=== PATIENT | female | born 2000 | race Caucasian/White ===

== ENCOUNTER → 2024-10-31 10:45 | Outpatient (REF) | payer OTHER, SELFPAY | LOC: HWRAD 10:45 | PROVIDERS: ATTENDING PHYSICIAN Orthopaedic Surgery Hand Surgery | DX: S62.025K Nondisplaced fracture of middle third of navicular [scaphoid] bone of left wrist, subsequent encounter for fracture with nonunion (principal) | CPT/HCPCS: 73200 ==